=== PATIENT | female | born 1990 | race Caucasian/White ===

== ENCOUNTER 2023-11-28 19:39 | Emergency (ER) | payer OTHER ==
[~2023-11-28] VITALS: Ht 157.5 cm; Wt 59.0 kg
[2023-11-28 19:43] VITALS: BP 141/97
[2023-11-28 19:46] VITALS: BP 132/85
== END 2023-11-28 21:30 | disposition home or self-care (01) | DRG 951 ==
LOC: ED 19:39
DX: Z77.21 Contact with and (suspected) exposure to potentially hazardous body fluids (principal)